=== PATIENT | female | born 1955 | race African-American/Black ===

== ENCOUNTER 2017-09-24 02:59 | Inpatient (IN) | payer MEDICAID ==
[~2017-09-24] VITALS: Ht 162.6 cm; Wt 96.5 kg
[2017-09-24] MEDS ORDERED: MS100DRIP PO (03:21)
[2017-09-24] MEDS ORDERED: PERCT10 PO (03:21)
[2017-09-24] MEDS ORDERED: METO50 PO (03:21)
[2017-09-24] MEDS ORDERED: BENA20 PO (03:21)
[2017-09-24] MEDS ORDERED: PANT40TA25 PO (03:21)
[2017-09-24] MEDS ORDERED: HYDR-2924 PO (03:21)
[2017-09-24] MEDS ORDERED: LORA10TA7 PO (03:21)
[2017-09-24 04:43] LABS: BASOPHILS % (AUTO) 0.4 % (0.0-2.0); EOSINOPHILS % (AUTO) 0.1 % (1.0-6.0); HEMATOCRIT 41.6 % (36-46); HEMOGLOBIN 14.6 g/dL (12.0-16.0); MEAN CORPUSCULAR HEMOGLOBIN 31.8 pg (26.0-34.0); MEAN CORPUSCULAR VOLUME 91 fL (80-100); MONOCYTES # (AUTO) 0.4 K/uL (0.1-1.0); MONOCYTES % (AUTO) 3.2 % (2.0-9.0); NEUTROPHILS # (AUTO) 9.5 K/uL (1.8-7.7); PLATELET COUNT (AUTO) 283 K/uL (150-450); RED BLOOD CELL COUNT(AUTO) 4.58 MIL/uL (4.00-5.20); RED CELL DISTRIBUTION WIDTH 13.4 % (11.5-14.5)
[2017-09-24 04:46] LABS: NEUTROPHILS % (AUTO) 87.3 % (40.0-70.0)
[2017-09-24 04:53] LABS: CALCIUM, TOTAL 9.3 mg/dL (8.8-10.5); CREATININE 1.13 mg/dL (0.60-1.30); POTASSIUM 3.4 mmol/L (3.5-5.1)
[2017-09-24 04:59] LABS: ALBUMIN 3.5 g/dL (3.4-5.0); BILIRUBIN,TOTAL 0.6 mg/dL (0.1-1.0); TOTAL PROTEIN, SERUM 9.2 g/dL (6.4-8.2)
[2017-09-24] MEDS ORDERED: MORPHINE SULFATE 60 MG PO ONE (06:30)
[2017-09-24] MEDS ORDERED: ONDANSETRON HCL 4 MG TABLET PO ONE (06:30)
[2017-09-24] MEDS ORDERED: ONDANSETRON HCL 4 MG/2 ML VIAL IVP ONE (07:30)
[2017-09-24] MEDS ORDERED: LORazepam 2 MG/ML VIAL IVP ONE (07:30)
[2017-09-24] MEDS ORDERED: SODIUM CHLORIDE 0.9% 1,000 ML IV ONE (07:30)
[2017-09-24] MEDS: PROMETHAZINE HCL 25 MG TABLET PO ONE ×2 (10:15→10:38)
[2017-09-24] MEDS ORDERED: MORP60 PO (10:34)
[2017-09-24] MEDS: METHADONE HCL 10 MG TABLET PO ONE ×2 (10:38→11:48)
[2017-09-24] MEDS: ASPIRIN 81 MG CHEWABLE TABLET PO SCH ×2 (10:45→11:48)
[2017-09-24] MEDS ORDERED: OxyCODONE HCL/ACETAMINOPHEN 5-325 MG TABLET PO PRN (10:45)
[2017-09-24] MEDS: LOSARTAN POTASSIUM 25 MG TABLET PO SCH ×3 (10:45→21:00)
[2017-09-24] MEDS ORDERED: DEXTROSE 50%-WATER 25 GM/50 ML SYRINGE IVP PRN (10:45)
[2017-09-24] MEDS ORDERED: ACETAMINOPHEN 325 MG TABLET PO PRN (10:45)
[2017-09-24] MEDS ORDERED: POTASSIUM CHLORIDE 20 MEQ ER TABLET PO PRN (10:45)
[2017-09-24] MEDS: METOPROLOL TARTRATE 25 MG TABLET PO SCH ×3 (10:45→21:00)
[2017-09-24] MEDS ORDERED: MORPHINE SULFATE 2 MG/ML SYRINGE IVP PRN (10:45)
[2017-09-24] MEDS ORDERED: MAGNESIUM HYDROXIDE SUSPENSION 30 ML UDCUP PO PRN (10:45)
[2017-09-24] MEDS ORDERED: ALBUTEROL SULFATE 2.5 MG/0.5 ML NEB SOLUTION NEB PRN (10:45)
[2017-09-24 11:49] VITALS: BP 181/79
[2017-09-24] MEDS: INSULIN LISPRO 100 UNITS/ML SQ PRN ×3 (11:59→20:38)
[2017-09-24] MEDS: CloNIDine HCL 0.1 MG TABLET PO PRN ×2 (12:08→23:30)
[2017-09-24] MEDS: MORPHINE SULFATE 4 MG/ML SYRINGE IVP PRN ×3 (12:31→20:38)
[2017-09-24] MEDS ORDERED: DEXTROSE 5%-0.45% SODIUM CHL 1,000 ML IV ONE (14:00)
[2017-09-24] MEDS: ENALAPRILAT DIHYDRATE 1.25 MG/ML VIAL IVP PRN ×2 (14:19→20:38)
[2017-09-24] MEDS: ONDANSETRON HCL 4 MG/2 ML VIAL IVP PRN ×2 (14:19→21:57)
[2017-09-24 15:35] VITALS: BP 164/99
[2017-09-24] MEDS: HEPARIN SODIUM,PORCINE 5,000 UNITS/ML VIAL SQ SCH ×2 (16:39→23:26)
[2017-09-24] MEDS: POTASSIUM CHL 10 MEQ/WATER 50 ML IV PRN ×3 (17:35→20:50)
[2017-09-24] MEDS: OxyCODONE HCL/ACETAMINOPHEN 10-325 MG TABLET PO PRN ×2 (19:36→23:26)
[2017-09-24 19:45] VITALS: BP 201/100
[2017-09-24 20:31] LABS: GLUCOMETER DEV NAME(LOC) 6N 1E; GLUCOSE,POINT OF CARE 162 MG/DL (70-110)
[2017-09-24 20:31] LABS: GLUCOMETER DEV NAME(LOC) 6N 1E; GLUCOSE,POINT OF CARE 163 MG/DL (70-110)
[2017-09-24] MEDS: DOCUSATE SODIUM 100 MG CAPSULE PO SCH (21:00)
[2017-09-24 21:51] LABS: GLUCOMETER DEV NAME(LOC) 6N 1E; GLUCOSE,POINT OF CARE 160 MG/DL (70-110)
[2017-09-24 23:15] VITALS: BP 212/123
[2017-09-25] VITALS (7 sets, daily range): BP systolic 162–198; BP diastolic 89–119
[2017-09-25] MEDS: MORPHINE SULFATE 4 MG/ML SYRINGE IVP PRN ×6 (00:31→22:34)
[2017-09-25] MEDS: POTASSIUM CHL 10 MEQ/WATER 50 ML IV PRN (02:17)
[2017-09-25] MEDS ORDERED: SODIUM CHLORIDE 0.9% 500 ML IV ONE ×2 (02:50→11:11)
[2017-09-25] MEDS: OxyCODONE HCL/ACETAMINOPHEN 10-325 MG TABLET PO PRN ×4 (03:29→18:53)
[2017-09-25] MEDS: INSULIN LISPRO 100 UNITS/ML SQ PRN (05:13)
[2017-09-25] MEDS: ENALAPRILAT DIHYDRATE 1.25 MG/ML VIAL IVP PRN ×2 (05:18→13:18)
[2017-09-25 05:19] LABS: GLUCOMETER DEV NAME(LOC) 6N 2D; GLUCOSE,POINT OF CARE 147 MG/DL (70-110)
[2017-09-25] MEDS: HEPARIN SODIUM,PORCINE 5,000 UNITS/ML VIAL SQ SCH ×3 (08:00→19:47)
[2017-09-25] MEDS: CloNIDine HCL 0.1 MG TABLET PO PRN ×2 (08:07→18:58)
[2017-09-25] MEDS ORDERED: PANTOPRAZOLE SODIUM 40 MG DR TABLET PO SCH (09:00)
[2017-09-25] MEDS: DOCUSATE SODIUM 100 MG CAPSULE PO SCH ×2 (09:00→19:48)
[2017-09-25] MEDS: ASPIRIN 81 MG CHEWABLE TABLET PO SCH (09:00)
[2017-09-25] MEDS: METOPROLOL TARTRATE 25 MG TABLET PO SCH ×2 (09:36→20:16)
[2017-09-25] MEDS: LOSARTAN POTASSIUM 25 MG TABLET PO SCH ×2 (09:36→20:16)
[2017-09-25 11:07] LABS: BASOPHILS % (AUTO) 0.7 % (0.0-2.0); EOSINOPHILS % (AUTO) 0 % (1.0-6.0); HEMATOCRIT 45.6 % (36-46); HEMOGLOBIN 15.6 g/dL (12.0-16.0); LYMPHOCYTES # (AUTO) 2.2 K/uL (1.0-4.8); LYMPHOCYTES % (AUTO) 9.1 % (22.0-44.0); MEAN CORPUSCULAR HEMOGLOBIN 30.8 pg (26.0-34.0); MEAN CORPUSCULAR HGB CONC 34.3 G/dL (31.0-37.0); MEAN CORPUSCULAR VOLUME 90 fL (80-100); MONOCYTES # (AUTO) 1.6 K/uL (0.1-1.0); MONOCYTES % (AUTO) 6.5 % (2.0-9.0); NEUTROPHILS # (AUTO) 20.2 K/uL (1.8-7.7); NEUTROPHILS % (AUTO) 83.7 % (40.0-70.0); PLATELET COUNT (AUTO) 351 K/uL (150-450); RED BLOOD CELL COUNT(AUTO) 5.08 MIL/uL (4.00-5.20); RED CELL DISTRIBUTION WIDTH 13.9 % (11.5-14.5)
[2017-09-25 11:17] LABS: PROTHROMBIN TIME 10.2 SEC (9.4-11.6)
[2017-09-25] MEDS: PANTOPRAZOLE SODIUM 80 MG in SODIUM CHLORIDE 0.9% 100 ML IV SCH ×2 (11:17→20:16)
[2017-09-25 15:08] LABS: GLUCOMETER DEV NAME(LOC) 6N 1E; GLUCOSE,POINT OF CARE 131 MG/DL (70-110)
[2017-09-25] MEDS: DEXTROSE 5%-0.45% SODIUM CHL 1,000 ML IV SCH (16:38)
[2017-09-25 21:18] LABS: GLUCOMETER DEV NAME(LOC) 6N 1E; GLUCOSE,POINT OF CARE 120 MG/DL (70-110)
[2017-09-25 21:23] LABS: GLUCOMETER DEV NAME(LOC) 6N 1E; GLUCOSE,POINT OF CARE 130 MG/DL (70-110)
[2017-09-26] VITALS (8 sets, daily range): BP systolic 128–187; BP diastolic 71–127
[2017-09-26] MEDS: OxyCODONE HCL/ACETAMINOPHEN 10-325 MG TABLET PO PRN ×2 (00:11→05:15)
[2017-09-26] MEDS: MORPHINE SULFATE 4 MG/ML SYRINGE IVP PRN ×6 (03:34→23:57)
[2017-09-26] MEDS: PANTOPRAZOLE SODIUM 80 MG in SODIUM CHLORIDE 0.9% 100 ML IV SCH ×2 (05:15→18:08)
[2017-09-26 05:43] LABS: GLUCOMETER DEV NAME(LOC) 6N 1E; GLUCOSE,POINT OF CARE 125 MG/DL (70-110)
[2017-09-26 06:35] LABS: BASOPHILS % (AUTO) 0.3 % (0.0-2.0); EOSINOPHILS % (AUTO) 0 % (1.0-6.0); HEMOGLOBIN 14.5 g/dL (12.0-16.0); LYMPHOCYTES # (AUTO) 3.1 K/uL (1.0-4.8); LYMPHOCYTES % (AUTO) 14.5 % (22.0-44.0); MEAN CORPUSCULAR HEMOGLOBIN 31.5 pg (26.0-34.0); MEAN CORPUSCULAR HGB CONC 34.6 G/dL (31.0-37.0); MEAN CORPUSCULAR VOLUME 91 fL (80-100); MONOCYTES # (AUTO) 1.3 K/uL (0.1-1.0); MONOCYTES % (AUTO) 6.2 % (2.0-9.0); NEUTROPHILS # (AUTO) 16.8 K/uL (1.8-7.7); PLATELET COUNT (AUTO) 305 K/uL (150-450); RED BLOOD CELL COUNT(AUTO) 4.62 MIL/uL (4.00-5.20)
[2017-09-26 06:55] LABS: BILIRUBIN,TOTAL 0.8 mg/dL (0.1-1.0); CALCIUM, TOTAL 8.2 mg/dL (8.8-10.5); CREATININE 1.17 mg/dL (0.60-1.30); POTASSIUM 3.5 mmol/L (3.5-5.1); TOTAL PROTEIN, SERUM 8.2 g/dL (6.4-8.2)
[2017-09-26] MEDS ORDERED: SODIUM CHLORIDE 0.9% 1,000 ML IV ONE ×4 (06:59→16:52)
[2017-09-26] MEDS ORDERED: MIDAZOLAM HCL 5 MG/ML VIAL ONE ×2 (07:26→07:47)
[2017-09-26] MEDS ORDERED: FentaNYL CITRATE-PF 100 MCG/2 ML VIAL ONE ×2 (07:27→07:47)
[2017-09-26] MEDS: LOSARTAN POTASSIUM 25 MG TABLET PO SCH ×2 (09:00→19:39)
[2017-09-26] MEDS: DOCUSATE SODIUM 100 MG CAPSULE PO SCH ×2 (09:00→19:39)
[2017-09-26] MEDS: METOPROLOL TARTRATE 25 MG TABLET PO SCH (09:00)
[2017-09-26] MEDS: ONDANSETRON HCL 4 MG/2 ML VIAL IVP PRN ×2 (09:30→18:08)
[2017-09-26] MEDS: DEXTROSE 5%-0.45% SODIUM CHL 1,000 ML IV SCH ×2 (09:38→17:54)
[2017-09-26] MEDS: ENALAPRILAT DIHYDRATE 1.25 MG/ML VIAL IVP PRN ×2 (09:54→18:08)
[2017-09-26] MEDS: INSULIN LISPRO 100 UNITS/ML SQ PRN (11:57)
[2017-09-26] MEDS ORDERED: MORPHINE SULFATE 4 MG/ML SYRINGE ONE (17:51)
[2017-09-26] MEDS ORDERED: DEXTROSE 5%-0.45% SODIUM CHL 1,000 ML IV ONE (17:51)
[2017-09-26 17:58] LABS: HEMATOCRIT 37.1 % (36-46); HEMOGLOBIN 12.5 g/dL (12.0-16.0)
[2017-09-26] MEDS ORDERED: EPINEPHrine 1:10,000 [1 MG/10 ML] SYRINGE ONE (18:03)
[2017-09-26 18:06] LABS: PROTHROMBIN TIME 10.4 SEC (9.4-11.6)
[2017-09-26] MEDS ORDERED: METOPROLOL TARTRATE 5 MG/5 ML VIAL IVP SCH (19:30)
[2017-09-26 19:44] LABS: APPEARANCE,URINE CLOUDY (CLEAR); BILIRUBIN,URINE NEGATIVE (NEGATIVE); GLUCOSE, URINE (UA) NEGATIVE (NEGATIVE); KETONES,URINE NEGATIVE (NEGATIVE); LEUKOCYTE ESTERASE ,URINE SMALL (NEGATIVE); NITRATE,URINE POSITIVE (NEGATIVE); OCCULT BLOOD,URINE MODERATE (NEGATIVE); PROTEIN,URINE TRACE (NEGATIVE); UROBILINOGEN,URINE 0.2 mg/dL (<=1.0)
[2017-09-26 20:06] LABS: GLUCOMETER DEV NAME(LOC) 6N 2D; GLUCOSE,POINT OF CARE 134 MG/DL (70-110)
[2017-09-26 20:47] LABS: BACTERIA,URINE Many /HPF (None Seen); RBC,URINE 0-2 /HPF (0-2)
[2017-09-26 20:49] LABS: SQUAMOUS EPITHELIAL CELL,UR Moderate /LPF (None Seen)
[2017-09-27] VITALS (17 sets, daily range): BP systolic 142–198; BP diastolic 60–115
[2017-09-27] MEDS: METOPROLOL TARTRATE 5 MG/5 ML VIAL IVP SCH ×4 (00:06→17:20)
[2017-09-27 00:41] LABS: HEMATOCRIT 34.5 % (36-46); HEMOGLOBIN 11.6 g/dL (12.0-16.0)
[2017-09-27] MEDS: PANTOPRAZOLE SODIUM 80 MG in SODIUM CHLORIDE 0.9% 100 ML IV SCH ×3 (01:16→15:35)
[2017-09-27] MEDS: DEXTROSE 5%-0.45% SODIUM CHL 1,000 ML IV SCH ×2 (05:45→18:28)
[2017-09-27] MEDS ORDERED: LIDOCAINE HCL/PF 2% 5 ML VIAL IM ONE ×2 (05:49→05:53)
[2017-09-27] MEDS ORDERED: ONDANSETRON HCL 4 MG/2 ML VIAL IVP ONE (05:49)
[2017-09-27] MEDS ORDERED: ESMOLOL HCL 10 MG/ML 10 ML VIAL IVP ONE (05:49)
[2017-09-27] MEDS ORDERED: PROPOFOL 1% 20 ML VIAL IVP ONE ×2 (05:49→05:53)
[2017-09-27 06:39] LABS: GLUCOSE,POINT OF CARE 107 MG/DL (70-110)
[2017-09-27 06:47] LABS: GLUCOSE,POINT OF CARE 124 MG/DL (70-110)
[2017-09-27] MEDS: DOCUSATE SODIUM 100 MG CAPSULE PO SCH ×2 (08:07→20:47)
[2017-09-27] MEDS: LOSARTAN POTASSIUM 25 MG TABLET PO SCH ×2 (08:07→20:47)
[2017-09-27] MEDS: MORPHINE SULFATE 4 MG/ML SYRINGE IVP PRN ×4 (09:00→20:48)
[2017-09-27 09:29] LABS: BASOPHILS % (AUTO) 0.3 % (0.0-2.0); EOSINOPHILS % (AUTO) 0 % (1.0-6.0); HEMATOCRIT 34.9 % (36-46); HEMOGLOBIN 11.7 g/dL (12.0-16.0); LYMPHOCYTES # (AUTO) 3.3 K/uL (1.0-4.8); LYMPHOCYTES % (AUTO) 26.2 % (22.0-44.0); MEAN CORPUSCULAR HEMOGLOBIN 30.9 pg (26.0-34.0); MEAN CORPUSCULAR HGB CONC 33.6 G/dL (31.0-37.0); MEAN CORPUSCULAR VOLUME 92 fL (80-100); MONOCYTES # (AUTO) 0.8 K/uL (0.1-1.0); MONOCYTES % (AUTO) 6.7 % (2.0-9.0); NEUTROPHILS # (AUTO) 8.4 K/uL (1.8-7.7); NEUTROPHILS % (AUTO) 66.8 % (40.0-70.0); PLATELET COUNT (AUTO) 286 K/uL (150-450); RED CELL DISTRIBUTION WIDTH 13.4 % (11.5-14.5)
[2017-09-27] MEDS: ENALAPRILAT DIHYDRATE 1.25 MG/ML VIAL IVP PRN (09:46)
[2017-09-27 10:00] LABS: ALANINE AMINOTRANSFERASE 25 U/L (12-78); ALBUMIN 2.9 g/dL (3.4-5.0); ALKALINE PHOSPHATASE 62 U/L (46-116); ANION GAP 8 mmol/L (8-16); ASPARTATE AMINOTRANSFERASE 31 U/L (15-37); BILIRUBIN,TOTAL 0.4 mg/dL (0.1-1.0); CARBON DIOXIDE 26 mmol/L (22-29); CHLORIDE 106 mmol/L (98-107); CREATININE 1.07 mg/dL (0.60-1.30); GLOMERULAR FILTR. RATE CALC > 60 mL/min (>60); GLUCOSE,RANDOM 122 mg/dL (70-110); POTASSIUM 3.5 mmol/L (3.5-5.1); SODIUM SERUM 140 mmol/L (136-145); TOTAL PROTEIN, SERUM 7.4 g/dL (6.4-8.2); UREA NITROGEN, BLOOD 29 mg/dL (7-18)
[2017-09-27] MEDS: POTASSIUM CHL 10 MEQ/WATER 50 ML IV PRN ×3 (12:26→13:50)
[2017-09-27] MEDS: CloNIDine HCL 0.1 MG TABLET PO PRN (13:50)
[2017-09-27] MEDS: OxyCODONE HCL/ACETAMINOPHEN 10-325 MG TABLET PO PRN ×3 (14:24→22:57)
[2017-09-27 15:03] LABS: GLUCOSE,POINT OF CARE 120 MG/DL (70-110)
[2017-09-27 19:03] LABS: HEMATOCRIT 29.2 % (36-46); HEMOGLOBIN 9.9 g/dL (12.0-16.0)
[2017-09-27 20:04] LABS: GLUCOSE,POINT OF CARE 96 MG/DL (70-110)
[2017-09-27 20:04] LABS: GLUCOSE,POINT OF CARE 111 MG/DL (70-110)
[2017-09-28] VITALS (15 sets, daily range): BP systolic 103–171; BP diastolic 47–80
[2017-09-28] MEDS: METOPROLOL TARTRATE 5 MG/5 ML VIAL IVP SCH ×3 (00:19→15:07)
[2017-09-28] MEDS: PANTOPRAZOLE SODIUM 80 MG in SODIUM CHLORIDE 0.9% 100 ML IV SCH ×3 (00:49→20:50)
[2017-09-28] MEDS: MORPHINE SULFATE 4 MG/ML SYRINGE IVP PRN ×7 (00:54→22:59)
[2017-09-28 01:18] LABS: HEMATOCRIT 26.7 % (36-46); HEMOGLOBIN 9.4 g/dL (12.0-16.0)
[2017-09-28] MEDS: OxyCODONE HCL/ACETAMINOPHEN 10-325 MG TABLET PO PRN ×5 (04:34→20:59)
[2017-09-28 04:51] LABS: BASOPHILS % (AUTO) 0.8 % (0.0-2.0); EOSINOPHILS % (AUTO) 0.6 % (1.0-6.0); HEMATOCRIT 26.5 % (36-46); HEMOGLOBIN 9.3 g/dL (12.0-16.0); LYMPHOCYTES # (AUTO) 4.7 K/uL (1.0-4.8); LYMPHOCYTES % (AUTO) 42.4 % (22.0-44.0); MEAN CORPUSCULAR HEMOGLOBIN 31.9 pg (26.0-34.0); MEAN CORPUSCULAR VOLUME 91 fL (80-100); MONOCYTES # (AUTO) 0.7 K/uL (0.1-1.0); MONOCYTES % (AUTO) 5.9 % (2.0-9.0); NEUTROPHILS # (AUTO) 5.6 K/uL (1.8-7.7); NEUTROPHILS % (AUTO) 50.3 % (40.0-70.0); PLATELET COUNT (AUTO) 236 K/uL (150-450); RED BLOOD CELL COUNT(AUTO) 2.91 MIL/uL (4.00-5.20); RED CELL DISTRIBUTION WIDTH 13.6 % (11.5-14.5)
[2017-09-28 05:00] LABS: CALCIUM, TOTAL 7.5 mg/dL (8.8-10.5); CREATININE 1.13 mg/dL (0.60-1.30); POTASSIUM 4.1 mmol/L (3.5-5.1)
[2017-09-28 06:43] LABS: GLUCOSE,POINT OF CARE 120 MG/DL (70-110)
[2017-09-28 06:43] LABS: GLUCOSE,POINT OF CARE 98 MG/DL (70-110)
[2017-09-28] MEDS: DOCUSATE SODIUM 100 MG CAPSULE PO SCH ×2 (09:29→21:00)
[2017-09-28] MEDS: CloNIDine HCL 0.1 MG TABLET PO PRN (09:30)
[2017-09-28] MEDS: LOSARTAN POTASSIUM 25 MG TABLET PO SCH ×2 (09:30→20:50)
[2017-09-28 14:37] LABS: HEMATOCRIT 27.1 % (36-46); HEMOGLOBIN 9.5 g/dL (12.0-16.0)
[2017-09-28 16:03] LABS: GLUCOSE,POINT OF CARE 109 MG/DL (70-110)
[2017-09-28 18:29] LABS: GLUCOSE,POINT OF CARE 92 MG/DL (70-110)
[2017-09-28] MEDS: ENALAPRILAT DIHYDRATE 1.25 MG/ML VIAL IVP PRN (18:37)
[2017-09-28] MEDS: METOPROLOL TARTRATE 50 MG TABLET PO SCH (20:50)
[2017-09-28] MEDS: BENAZEPRIL HCL 20 MG TABLET PO SCH (20:50)
[2017-09-28 22:12] LABS: HEMATOCRIT 25.5 % (36-46); HEMOGLOBIN 8.9 g/dL (12.0-16.0)
[2017-09-29] VITALS (12 sets, daily range): BP systolic 144–183; BP diastolic 61–85
[2017-09-29] MEDS: MORPHINE SULFATE 4 MG/ML SYRINGE IVP PRN ×7 (04:11→23:44)
[2017-09-29 05:03] LABS: GLUCOSE,POINT OF CARE 95 MG/DL (70-110)
[2017-09-29 05:03] LABS: GLUCOSE,POINT OF CARE 109 MG/DL (70-110)
[2017-09-29] MEDS: OxyCODONE HCL/ACETAMINOPHEN 10-325 MG TABLET PO PRN ×2 (05:04→20:23)
[2017-09-29 05:05] LABS: BASOPHILS % (AUTO) 0.4 % (0.0-2.0); EOSINOPHILS % (AUTO) 1.2 % (1.0-6.0); HEMATOCRIT 25.1 % (36-46); HEMOGLOBIN 8.9 g/dL (12.0-16.0); LYMPHOCYTES # (AUTO) 4.1 K/uL (1.0-4.8); LYMPHOCYTES % (AUTO) 41.7 % (22.0-44.0); MEAN CORPUSCULAR HEMOGLOBIN 32.6 pg (26.0-34.0); MEAN CORPUSCULAR HGB CONC 35.7 G/dL (31.0-37.0); MEAN CORPUSCULAR VOLUME 91 fL (80-100); MONOCYTES # (AUTO) 0.6 K/uL (0.1-1.0); MONOCYTES % (AUTO) 5.8 % (2.0-9.0); NEUTROPHILS # (AUTO) 4.9 K/uL (1.8-7.7); NEUTROPHILS % (AUTO) 50.9 % (40.0-70.0); PLATELET COUNT (AUTO) 240 K/uL (150-450); RED BLOOD CELL COUNT(AUTO) 2.75 MIL/uL (4.00-5.20); RED CELL DISTRIBUTION WIDTH 13.5 % (11.5-14.5)
[2017-09-29] MEDS: PANTOPRAZOLE SODIUM 80 MG in SODIUM CHLORIDE 0.9% 100 ML IV SCH ×2 (05:05→18:41)
[2017-09-29 05:17] LABS: ANION GAP 5 mmol/L (8-16); CARBON DIOXIDE 29 mmol/L (22-29); CHLORIDE 105 mmol/L (98-107); CREATININE 1.06 mg/dL (0.60-1.30); GLOMERULAR FILTR. RATE CALC > 60 mL/min (>60); GLUCOSE,RANDOM 101 mg/dL (70-110); POTASSIUM 3.5 mmol/L (3.5-5.1); SODIUM SERUM 139 mmol/L (136-145); UREA NITROGEN, BLOOD 10 mg/dL (7-18)
[2017-09-29] MEDS: POTASSIUM CHL 10 MEQ/WATER 50 ML IV PRN ×3 (08:21→13:17)
[2017-09-29] MEDS: DOCUSATE SODIUM 100 MG CAPSULE PO SCH ×2 (08:21→20:23)
[2017-09-29] MEDS: METOPROLOL TARTRATE 50 MG TABLET PO SCH ×2 (08:21→20:24)
[2017-09-29] MEDS: HydrALAZINE HCL 50 MG TABLET PO SCH (08:22)
[2017-09-29] MEDS: LOSARTAN POTASSIUM 25 MG TABLET PO SCH ×2 (08:22→20:23)
[2017-09-29] MEDS: BENAZEPRIL HCL 20 MG TABLET PO SCH ×2 (08:22→20:23)
[2017-09-29] MEDS ORDERED: SODIUM CHLORIDE 0.9% 250 ML IV ONE (08:26)
[2017-09-29] MEDS ORDERED: SODIUM CHLORIDE 0.9% 1,000 ML IV ONE (11:11)
[2017-09-29] MEDS ORDERED: MAGNESIUM SULFATE 4 GM/WATER 100 ML IV PRN (13:00)
[2017-09-29] MEDS ORDERED: MAGNESIUM SULFATE 2 GM in DEXTROSE 5%-WATER 50 ML IV PRN (13:00)
[2017-09-29 13:03] LABS: ALBUMIN 2.4 g/dL (3.4-5.0)
[2017-09-29] MEDS: MAGNESIUM OXIDE 400 MG TABLET PO PRN ×2 (13:17→18:41)
[2017-09-29] MEDS: CloNIDine HCL 0.1 MG TABLET PO PRN (13:29)
[2017-09-29] MEDS: GABAPENTIN 400 MG CAPSULE PO SCH ×2 (16:03→20:23)
[2017-09-29] MEDS: PANTOPRAZOLE SODIUM 40 MG DR TABLET PO SCH (20:24)
[2017-09-29 21:25] LABS: HEMATOCRIT 27.3 % (36-46); HEMOGLOBIN 9.7 g/dL (12.0-16.0)
[2017-09-30] VITALS (7 sets, daily range): BP systolic 144–165; BP diastolic 73–91
[2017-09-30] MEDS: MORPHINE SULFATE 4 MG/ML SYRINGE IVP PRN ×4 (03:04→11:56)
[2017-09-30] MEDS: MAGNESIUM OXIDE 400 MG TABLET PO PRN (03:05)
[2017-09-30] MEDS: OxyCODONE HCL/ACETAMINOPHEN 10-325 MG TABLET PO PRN ×3 (05:22→21:03)
[2017-09-30 05:30] LABS: GLUCOMETER DEV NAME(LOC) 5S 1M; GLUCOSE,POINT OF CARE 133 MG/DL (70-110)
[2017-09-30 05:31] LABS: GLUCOMETER DEV NAME(LOC) 5S 2Q; GLUCOSE,POINT OF CARE 104 MG/DL (70-110)
[2017-09-30 05:31] LABS: GLUCOMETER DEV NAME(LOC) 5S 2Q; GLUCOSE,POINT OF CARE 94 MG/DL (70-110)
[2017-09-30 06:32] LABS: CALCIUM, TOTAL 8.1 mg/dL (8.8-10.5); CREATININE 1.2 mg/dL (0.60-1.30); MAGNESIUM 1.8 mg/dL (1.80-2.40); POTASSIUM 3.9 mmol/L (3.5-5.1)
[2017-09-30 08:13] LABS: GLUCOMETER DEV NAME(LOC) 5S 2Q; GLUCOSE,POINT OF CARE 114 MG/DL (70-110)
[2017-09-30 08:17] LABS: BASOPHILS % (AUTO) 0.8 % (0.0-2.0); EOSINOPHILS % (AUTO) 1.3 % (1.0-6.0); HEMATOCRIT 26.7 % (36-46); HEMOGLOBIN 9.5 g/dL (12.0-16.0); LYMPHOCYTES # (AUTO) 3.5 K/uL (1.0-4.8); MEAN CORPUSCULAR HEMOGLOBIN 32.7 pg (26.0-34.0); MEAN CORPUSCULAR HGB CONC 35.7 G/dL (31.0-37.0); MEAN CORPUSCULAR VOLUME 91 fL (80-100); MONOCYTES # (AUTO) 0.7 K/uL (0.1-1.0); MONOCYTES % (AUTO) 7.3 % (2.0-9.0); NEUTROPHILS # (AUTO) 5.6 K/uL (1.8-7.7); NEUTROPHILS % (AUTO) 55.6 % (40.0-70.0); PLATELET COUNT (AUTO) 308 K/uL (150-450); RED BLOOD CELL COUNT(AUTO) 2.92 MIL/uL (4.00-5.20); RED CELL DISTRIBUTION WIDTH 13.7 % (11.5-14.5)
[2017-09-30] MEDS: METOPROLOL TARTRATE 50 MG TABLET PO SCH ×2 (08:32→21:02)
[2017-09-30] MEDS: GABAPENTIN 400 MG CAPSULE PO SCH ×3 (08:32→21:02)
[2017-09-30] MEDS: PANTOPRAZOLE SODIUM 40 MG DR TABLET PO SCH ×2 (08:32→21:02)
[2017-09-30] MEDS: DOCUSATE SODIUM 100 MG CAPSULE PO SCH ×2 (08:33→21:00)
[2017-09-30] MEDS: BENAZEPRIL HCL 20 MG TABLET PO SCH ×2 (09:31→21:08)
[2017-09-30] MEDS: LOSARTAN POTASSIUM 25 MG TABLET PO SCH ×2 (12:34→21:09)
[2017-09-30] MEDS: CefTRIAXone SODIUM 1 GM in DEXTROSE 5%-WATER 10 ML IV SCH (15:21)
[2017-09-30] MEDS: HydrALAZINE HCL 50 MG TABLET PO SCH (16:57)
[2017-10-01] MEDS: OxyCODONE HCL/ACETAMINOPHEN 10-325 MG TABLET PO PRN ×3 (04:02→15:10)
[2017-10-01 04:43] VITALS: BP 140/74
[2017-10-01 06:56] LABS: BASOPHILS % (AUTO) 0.5 % (0.0-2.0); EOSINOPHILS % (AUTO) 2.9 % (1.0-6.0); HEMATOCRIT 29.2 % (36-46); HEMOGLOBIN 10.1 g/dL (12.0-16.0); LYMPHOCYTES % (AUTO) 39.6 % (22.0-44.0); MEAN CORPUSCULAR HEMOGLOBIN 32.3 pg (26.0-34.0); MEAN CORPUSCULAR HGB CONC 34.7 G/dL (31.0-37.0); MEAN CORPUSCULAR VOLUME 93 fL (80-100); MONOCYTES # (AUTO) 0.7 K/uL (0.1-1.0); MONOCYTES % (AUTO) 7.2 % (2.0-9.0); NEUTROPHILS # (AUTO) 5.1 K/uL (1.8-7.7); NEUTROPHILS % (AUTO) 49.8 % (40.0-70.0); PLATELET COUNT (AUTO) 380 K/uL (150-450); RED BLOOD CELL COUNT(AUTO) 3.14 MIL/uL (4.00-5.20)
[2017-10-01 07:01] LABS: CALCIUM, TOTAL 8.2 mg/dL (8.8-10.5); CREATININE 1.22 mg/dL (0.60-1.30); POTASSIUM 3.4 mmol/L (3.5-5.1)
[2017-10-01 07:59] LABS: GLUCOMETER DEV NAME(LOC) 5S 1M; GLUCOSE,POINT OF CARE 102 MG/DL (70-110)
[2017-10-01 08:02] VITALS: BP 150/72
[2017-10-01] MEDS: LOSARTAN POTASSIUM 25 MG TABLET PO SCH (08:31)
[2017-10-01] MEDS: GABAPENTIN 400 MG CAPSULE PO SCH ×2 (08:31→15:10)
[2017-10-01] MEDS: PANTOPRAZOLE SODIUM 40 MG DR TABLET PO SCH (08:31)
[2017-10-01] MEDS: METOPROLOL TARTRATE 50 MG TABLET PO SCH (08:31)
[2017-10-01] MEDS: BENAZEPRIL HCL 20 MG TABLET PO SCH (08:31)
[2017-10-01] MEDS: HydrALAZINE HCL 50 MG TABLET PO SCH (08:31)
[2017-10-01] MEDS: DOCUSATE SODIUM 100 MG CAPSULE PO SCH (08:32)
[2017-10-01 12:02] VITALS: BP 148/80
[2017-10-01] MEDS: CefTRIAXone SODIUM 1 GM in DEXTROSE 5%-WATER 10 ML IV SCH (13:34)
[2017-10-01] MEDS ORDERED: MAGNESIUM SULFATE 2 GM/WATER 50 ML IV PRN (14:00)
[2017-10-01 15:34] VITALS: BP 160/77
== END 2017-10-01 17:00 | disposition home or self-care (01) | DRG 242 ==
LOC: EMS 03:00 → 6N 09:59 → ICU 09-26 17:00 → 5S 09-29 10:35
PROVIDERS: ADMIT Internal Medicine; ATTEND Internal Medicine
PROC: 0DJ08ZZ Inspection of Upper Intestinal Tract, Via Natural or Artificial Opening Endoscopic (ICD-10-PCS; 2017-09-26)
PROC: 0W3P8ZZ Control Bleeding in Gastrointestinal Tract, Via Natural or Artificial Opening Endoscopic (ICD-10-PCS; 2017-09-26)
PROC: 3E0G8GC Introduction of Other Therapeutic Substance into Upper GI, Via Natural or Artificial Opening Endoscopic (ICD-10-PCS; principal; 2017-09-26 08:00)
DX: K22.6 Gastro-esophageal laceration-hemorrhage syndrome (principal); I80.8 Phlebitis and thrombophlebitis of other sites; I10 Essential (primary) hypertension; F11.23 Opioid dependence with withdrawal; E66.9 Obesity, unspecified; Z68.37 Body mass index [BMI] 37.0-37.9, adult; K20.9 Esophagitis, unspecified; E11.9 Type 2 diabetes mellitus without complications; G89.4 Chronic pain syndrome; J45.909 Unspecified asthma, uncomplicated; K92.1 Melena; D62 Acute posthemorrhagic anemia; E66.01 Morbid (severe) obesity due to excess calories; N39.0 Urinary tract infection, site not specified; M19.90 Unspecified osteoarthritis, unspecified site; Z83.3 Family history of diabetes mellitus; Z88.0 Allergy status to penicillin; Z88.2 Allergy status to sulfonamides; Z79.899 Other long term (current) drug therapy; Z68.36 Body mass index [BMI] 36.0-36.9, adult
CPT/HCPCS: 71046; 74019; 83735; 84132; 85014; 85018; 87081; 87086; 93005; 97112; 97161; 97530; 99285; C9113; J0171; J0696; J1644; J2060; J2250; J2270; J2405; J2704; J3010; J3480; J3490; J7030; J7040; J7050; J7060; Q0162